=== PATIENT | male | born 1955 | race Caucasian/White ===

== ENCOUNTER 2016-09-30 07:34 | Day surgery (SDC) | payer OTHER ==
[~2016-09-30 07:34] MED LIST: ALPRAZolam 0.25 MG TAB PO PRN; ALPRAZolam 0.5 MG TAB PO PRN; ASPIRIN 325 MG TAB PO STA; ATORVASTATIN 80 MG TAB PO STA; NITROGLYCERIN SL TABS 0.4 MG TAB SUBLINGUAL PRN; SODIUM CHLORIDE 0.9% 1,000 ML in EMPTY BAG 1 BAG IV ONE
[2016-09-30 08:03] VITALS: PULSE 103; RESP 20; TEMP 97.9
[2016-09-30 08:38] LABS: Anion Gap 10 mmol/L; Blood Urea Nitrogen 7 mg/dL (9-20); Calcium 9.9 mg/dL (8.4-10.2); Carbon Dioxide 23 mmol/L (22-30); Chloride 109 mmol/L (98-107); Glucose 109 mg/dL (74-99); Non-African American GFR(MDRD) >60 (>60 ml/min/1.73 sqM); Potassium 4.1 mmol/L (3.5-5.1); Sodium 142 mmol/L (137-145)
[2016-09-30] MEDS ORDERED: IV FLUID CONTINUATION 1,000 ML IV ONE (09:40)
[2016-09-30] MEDS ORDERED: VERAPAMIL 2.5 MG/ML 2 ML AMP ONE (09:53)
[2016-09-30] MEDS ORDERED: MIDAZOLAM 2 MG/2 ML VIAL ONE (09:53)
[2016-09-30] MEDS ORDERED: LIDOCAINE 2% INJ 20 MG/ML (20 ML MDV) ONE (09:54)
[2016-09-30] MEDS ORDERED: diphenhydrAMINE 50 MG/ML 1 ML VIAL ONE (09:54)
[2016-09-30] MEDS ORDERED: MIDAZOLAM 2 MG/2 ML VIAL IV ONE (09:58)
[2016-09-30] MEDS ORDERED: diphenhydrAMINE 50 MG/ML 1 ML VIAL IVP ONE (10:01)
[2016-09-30] MEDS ORDERED: LIDOCAINE 2% INJ 20 MG/ML SQ ONE (10:03)
[2016-09-30] MEDS ORDERED: VERAPAMIL SYRINGE (5 MG/10 ML) INTRAARTER ONE (10:05)
[2016-09-30] MEDS ORDERED: HEPARIN SODIUM 1,000 UN/ML (10ML VL) ONE (10:05)
[2016-09-30] MEDS ORDERED: METOPROLOL TARTRATE 5 MG/5 ML VIAL IVP ONE ×2 (10:10)
[2016-09-30] MEDS ORDERED: HYDROmorphone 2 MG/ML 1 ML SYRINGE ONE (10:10)
[2016-09-30] MEDS ORDERED: HYDROmorphone 2 MG/ML 1 ML SYRINGE IV ONE (10:13)
[2016-09-30] MEDS ORDERED: IOHEXOL 350 MG/ML 125ML BOTTLE INJ ONE (10:19)
[2016-09-30] MEDS ORDERED: RX INFO: IV CONTRAST WAS GIVEN 1 EACH MISC MISCELLANE PRN (10:30)
[2016-09-30] MEDS ORDERED: SODIUM CHLORIDE 0.9% 1,000 ML IV SCH (10:30)
--- NOTE | 2016-09-30 14:49 | XR ---
EXAMINATION TYPE: XR chest 2V DATE OF EXAM: 09/30/2016 COMPARISON: September 30, 2016 HISTORY: Shortness of breath TECHNIQUE: Frontal and lateral views of the chest are obtained. FINDINGS: Scattered senescent parenchymal changes noted. Hyperinflation compatible with COPD. No evidence for infiltrate. No evidence for atelectasis. Heart size is stable. Mediastinal structures are stable and grossly unremarkable. No evidence for hilar prominence. Degenerative changes dorsal spine. IMPRESSION: 1. No evidence for acute pulmonary disease.
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
[2016-09-30 17:43] VITALS: BP 145/70
--- NOTE | 2016-10-01 09:50 | CC ---
DATE OF SERVICE: 09/30/16 PERFORMING PHYSICIAN: Lito Messer M.D., behavioral sciences instructor. PROCEDURE PERFORMED: 1. Selective right and left coronary angiogram. 2. Left heart catheterization. 3. Left ventriculography. INDICATIONS: This is a pleasant 61 year old gentleman who was experiencing intermittent episodes of chest discomfort and underwent myocardial perfusion imaging stress test showed distal lateral wall and apical ischemia. He was brought today to undergo a heart catheterization. His risk factors for CAD is history of smoking in the past as well as dyslipidemia. APPROACH: Right radial artery. COMPLICATIONS: None. LEVEL OF SEDATION: Moderate with a sedation length of 22 minutes. PROCEDURE DESCRIPTION: After obtaining informed consent, the patient was brought to the cardiac label stamper. The right radial artery was cannulated using micropuncture technique. The micropuncture wire passed easily. Then, I placed a 6 Italian sheath in the right radial artery. Subsequently I did selective right and left coronary angiogram using JR4 and JL3.5 catheters. Then I did left heart catheterization using 6 Italian pigtail catheter. The procedure was completed without any complication. SELECTIVE CORONARY ANGIOGRAM: 1. The right coronary artery is a large caliber vessel and it is a dominant vessel. The proximal RCA appears to have mild disease only. The mid RCA has a lesion seems to be in the range of 50%. The RCA distally has a focal tight lesion appears to be in the range of 80%. The RCA bifurcates into PDA and PLV branches, both appear to be angiographically normal. 2. The left main is a large caliber vessel with distal disease appeared to be in the range of 70%. The left main bifurcates into the left circumflex and into the left anterior descending artery. 3. The left circumflex is a large caliber vessel and it was a non-dominant vessel. The ostial and proximal left circumflex appear to be diseased in the range of 70 to 80%. The mid left circumflex also seems to be diseased in the range of 70% and that disease involving the OM branch. The left circumflex after the OM branch continues as a small caliber vessel in the AV groove. 4. The left anterior descending coronary artery: The proximal left anterior descending artery has a long tubular lesion appeared to be in the range of 70 to 80%. The proximal LAD gives rise into the first diag which is a moderate caliber vessel with severe ostial disease in it. The mid LAD appeared to have mild disease only and distally appeared to be angiographically normal. HEMODYNAMICS: The left ventricular end diastolic pressure is 13 mmHg and no gradient was identified across the aortic valve. Left ventriculography was performed in the CRUZ projection and using a power injection. The left ventricular systolic function is mildly impaired with EF between 45 to 50% with distal inferior wall and apical hypokinesia. CONCLUSION: 1. Calcified right and left coronary systems. 2. Severe triple vessel coronary artery disease. 3. Severe disease involving the distal RCA which is a large and dominant vessel. 4. Severe disease involving the distal left main with eccentric calcified lesion. 5. Severe disease involving the ostial and proximal left circumflex coronary artery. 6. Severe disease involving the proximal to mid LAD with a long tubular lesion as well. 7. Mildly impaired LV function with an ejection fraction of around 45% with distal inferior and apical hypokinesia. 8. Normal left ventricular end diastolic pressure. POSTPROCEDURE MANAGEMENT: 1. Maximize medical treatment. 2. Follow-up with the patient. KVNG
--- NOTE | 2016-10-05 12:43 | P.VSCSTY ---
Greater Saphenous Vein Mapping This is bilateral lower extremity greater saphenous vein mapping. Date of service 09/30/2016 Vein quality and ultrasound appearance normal. Vein size groin right 7.1 x 5.9 groin left 7.2 x 5.3 High thigh right 6.1 x 5.0 high thigh left 4.9 x 4.1 Mid thigh right 5.9 x 4.0 mid thigh left 3.1 x 2.9 Above-knee right 6.0 x 4.1 above- knee left 5.3 x 3.6 Below knee right 5.5 x 3.2 below-knee left 4.5 x 3.7 Mid calf right 3.9 x 2.8 mid calf left 3.5 x 2.6 Ankle right 2.8 x 1.9 ankle left 2.9 x 1.9 Impression usable bilateral greater saphenous vein.
--- NOTE | 2016-10-05 12:44 | P.ARTDOP ---
Arterial Doppler LOWER EXTREMITY ARTERIAL DOPPLER: DATE OF SERVICE: 09/30/2016 Reason for study: Pre-CABG. Doppler waveforms: Multiphasic bilaterally throughout. Pulse volume recording: []. Pressure gradients: None. Ankle-brachial indices: Greater than 1 bilaterally. Toe pressures: [] on the right, [] on the left Impression: Normal study.
== END 2016-09-30 17:30 | disposition home or self-care (01) ==
LOC: CATHCVL 07:34
PROVIDERS: ATTEND Internal Medicine Interventional Cardiology
DX: I25.110 Atherosclerotic heart disease of native coronary artery with unstable angina pectoris (principal); I25.84 Coronary atherosclerosis due to calcified coronary lesion; E78.5 Hyperlipidemia, unspecified; Z87.891 Personal history of nicotine dependence; Z01.818 Encounter for other preprocedural examination; K21.9 Gastro-esophageal reflux disease without esophagitis; B19.20 Unspecified viral hepatitis C without hepatic coma; Z79.82 Long term (current) use of aspirin; Z79.899 Other long term (current) drug therapy
CPT/HCPCS: 99152; 99153; 93458; 80048; 71020; 93970; 93922; C1894; J2001; J2250; J1170; J1200; J1644; Q9967; 93923

== ENCOUNTER → 2016-11-02 | Outpatient (CLI) | payer OTHER ==
--- NOTE | 2016-11-02 11:35 | US ---
EXAMINATION TYPE: US liver DATE OF EXAM: 11/02/2016 COMPARISON: NONE CLINICAL HISTORY: R74.8 ABN LEVELS OF OTHER SERUM ENZYMES. Elevated liver enzymes EXAM MEASUREMENTS: Liver Length: 14.2 cm Gallbladder Wall: 0.3 cm CBD: 0.3 cm Right Kidney: 11.1 x 5.2 x 5.6 cm Pancreas: portions obscured by overlying bowel content Liver: heterogeneous Gallbladder: no evidence of stones Evidence for sonographic 's sign: no CBD: appears wnl Right Kidney: no evidence of hydronephrosis or mass Visualized liver is heterogeneously hyperechoic in appearance. There is no intrahepatic ductal dilata tion seen. Evaluation for focal masses is suboptimal due to the heterogeneity. IMPRESSION: Heterogeneous hyperechoic appearance of liver is likely on basis of diffuse fatty infiltr ation, product of underlying hepatocellular disease is not excluded. Imaging guided random biopsy for tissue analysis can be performed if desired.
== END | disposition home or self-care (01) ==
LOC: RADUSWWP 11:06
DX: K76.89 Other specified diseases of liver (principal); R74.8 Abnormal levels of other serum enzymes
CPT/HCPCS: 76705

== ENCOUNTER → 2016-11-24 | Outpatient (CLI) | payer OTHER ==
[2016-11-24 11:04] LABS: CH 32.5; CHCM 35.7; HCT 43.4 % (39.0-53.0); HDW 2.94; MCH 31.6 pg (25.0-35.0); MCHC 34.6 g/dL (31.0-37.0); MCV 91.5 fL (80.0-100.0); Mean Platelet Volume 7.7; RBC 4.74 m/uL (4.30-5.90); RDW 12.4 % (11.5-15.5); WBC 5.3 k/uL (3.8-10.6)
[2016-11-24 11:15] LABS: ALT 82 U/L (21-72); AST 49 U/L (17-59); Alkaline Phosphatase 111 U/L (38-126); Anion Gap 11 mmol/L; Blood Urea Nitrogen 6 mg/dL (9-20); Calcium 9.9 mg/dL (8.4-10.2); Carbon Dioxide 24 mmol/L (22-30); Chloride 106 mmol/L (98-107); Cholesterol 116 mg/dL (<200); Glucose 110 mg/dL (74-99); HDL Cholesterol 42 mg/dL (40-60); Magnesium 1.7 mg/dL (1.6-2.3); Non-African American GFR(MDRD) >60 (>60 ml/min/1.73 sqM); Potassium 4.1 mmol/L (3.5-5.1); Sodium 141 mmol/L (137-145); Total Bilirubin 0.7 mg/dL (0.2-1.3); Total Protein 7.6 g/dL (6.3-8.2)
[2016-11-24 11:18] LABS: INR 1.1 (<1.2); Partial Thromboplastin Time 23.8 sec (22.0-30.0); Prothrombin Time 10.9 sec (9.0-12.0)
[2016-11-24 11:22] LABS: Appearance,Urine Clear (Clear); Bilirubin,Urine Negative (Negative); Glucose,Urine (UA) Negative (Negative); Ketones,Urine Negative (Negative); Leukocyte Esterase,Urine Negative (Negative); Nitrite,Urine Negative (Negative); PH, Urine 5.5 (5.0-8.0); Protein,Urine Negative (Negative); Specific Gravity,Urine 1.013 (1.001-1.035); UA Billing (MACRO vs. MICRO) CHEM
--- NOTE | 2016-11-24 14:40 | XR ---
EXAMINATION TYPE: XR chest 2V DATE OF EXAM: 11/24/2016 COMPARISON: 09/30/2016 HISTORY: 61-year-old male presurgical testing prior to CABG TECHNIQUE: PA and lateral views FINDINGS: The cardiomediastinal silhouette, aorta, and pulmonary vasculature are within normal limits. Lungs an d pleural spaces are clear. IMPRESSION: No acute cardiopulmonary process.
--- NOTE | 2016-11-30 12:28 | P.ARTDOP ---
Arterial Doppler Bilateral radial artery studies: Reason for study: Pre-CABG Date of study 11/24/2016 Findings: Doppler assessment shows no significant right to left or segmental pressure gradients. With digital plethysmography and radial artery compression there is a pressure gradient of 40 mmHg on the right, there is no significant gradient on the left Imaging shows the right to be between 2.6 x 2.4 and 3.8 x 3.1 mm in diameter. The left is between 3.2 x 2.4 and 3.0 x 2.4 mm in diameter Left radial artery is usable by physiologic and anatomic criteria.
== END | disposition home or self-care (01) ==
LOC: LABPAT 07:39
PROVIDERS: ATTEND Surgery
DX: Z01.818 Encounter for other preprocedural examination (principal)
CPT/HCPCS: 36415; 71020; 80053; 80061; 80074; 81003; 83036; 83735; 83880; 84443; 84484; 85027; 85610; 85730; 87070; 87086; 93923; 93930; 94150

== ENCOUNTER → 2020-10-14 | Outpatient (CLI) | payer OTHER ==
[2020-10-14 14:55] LABS: HCT 43.4 % (39.0-53.0); HGB 15.5 gm/dL (13.0-17.5); MCH 33.2 pg (25.0-35.0); MCHC 35.8 g/dL (31.0-37.0); MCV 92.8 fL (80.0-100.0); Mean Platelet Volume 8.6; Platelet Count 168 k/uL (150-450); RBC 4.68 m/uL (4.30-5.90); RDW 12.2 % (11.5-15.5); WBC 7.9 k/uL (3.8-10.6)
[2020-10-14 15:06] LABS: African American GFR (CKD) >90 (>60 ml/min/1.73 sqM); Anion Gap 9 mmol/L; Blood Urea Nitrogen 8 mg/dL (9-20); Carbon Dioxide 27 mmol/L (22-30); Chloride 102 mmol/L (98-107); Non-African American GFR(CKD) >90 (>60 ml/min/1.73 sqM); Potassium 4.1 mmol/L (3.5-5.1); Sodium 138 mmol/L (137-145)
== END | disposition home or self-care (01) ==
LOC: LABPAT 13:39
PROVIDERS: ATTEND Internal Medicine Interventional Cardiology
DX: Z01.812 Encounter for preprocedural laboratory examination (principal); I25.10 Atherosclerotic heart disease of native coronary artery without angina pectoris
CPT/HCPCS: 36415; 80051; 82565; 84520; 85027

== ENCOUNTER 2020-11-03 06:31 | Day surgery (SDC) | payer OTHER ==
[2020-10-30 13:12] VITALS: BMI 28.9
[~2020-11-03 06:31] MED LIST changes: +HEPARIN SODIUM,PORCINE 10,000 UNIT in SODIUM CHLORIDE 0.9% 1,000 ML IRRIGATION PRN; +HEPARIN SODIUM,PORCINE 2,500 UNIT in SODIUM CHLORIDE 0.9% 250 ML IRRIGATION PRN
[2020-11-03] MEDS ORDERED: SODIUM CHLORIDE 0.9% 1,000 ML IV ONE (07:12)
[2020-11-03] MEDS ORDERED: LIDOCAINE 1% INJ 10MG/ML (20 ML MDV) ONE (07:14)
[2020-11-03] MEDS ORDERED: VERAPAMIL 2.5 MG/ML 2 ML AMP ONE (07:14)
[2020-11-03] MEDS ORDERED: HEPARIN SODIUM 1,000 UN/ML (10ML VL) ONE (07:14)
[2020-11-03 07:27] VITALS: TEMP 98.1
[2020-11-03] MEDS ORDERED: MIDAZOLAM 2 MG/2 ML VIAL IV ONE (07:35)
[2020-11-03] MEDS ORDERED: LIDOCAINE 1% INJ 10MG/ML (20 ML MDV) SQ ONE (07:48)
[2020-11-03] MEDS ORDERED: IOPAMIDOL-370 125ML BTL INJ ONE (08:14)
[2020-11-03] MEDS ORDERED: RX INFO: IV CONTRAST WAS GIVEN 1 EACH MISC MISCELLANE PRN (08:16)
[2020-11-03] MEDS ORDERED: SODIUM CHLORIDE 0.9% 1,000 ML IV SCH (08:30)
[2020-11-03] MEDS ORDERED: HYDROmorphone 1 MG/ML 1 ML SYRINGE IVP STA (09:47)
--- NOTE | 2020-11-03 09:50 | CC ---
CARDIAC CATHETERIZATION REPORT DATE OF SERVICE: 11/03/2020 PERFORMING PHYSICIAN: Lito Messer MD. PROCEDURE PERFORMED: 1. Selective left and right coronary angiogram. 2. GIBBS to LAD angiogram. 3. SVG to diagonal angiogram. 4. SVG to left circumflex angiogram. 5. SVG to RCA angiogram. 6. Left heart catheterization. 7. Right common femoral artery angiogram. INDICATION: This is a pleasant 57-year-old gentleman with coronary artery disease and prior coronary artery bypass grafting who was not feeling well where he was experiencing symptoms of feeling tired and fatigued and has no energy and sometimes chest discomfort. He underwent myocardial perfusion imaging stress test and that came in to be abnormal showing anterior ischemia. Because of that, a heart catheterization was advised. APPROACH: Right common femoral artery. COMPLICATION: None. LEVEL OF SEDATION: Moderate with sedation length of 24 minutes. PROCEDURE DESCRIPTION: After obtaining informed consent, the patient was brought to the cardiac general labor forklift operator. The right common femoral artery was cannulated using micropuncture technique and a micropuncture wire passed easily. Then I placed a 6-Malay sheath in the right common femoral artery. I did selective right and left coronary angiogram using JL4 and JR4 catheters. GIBBS to LAD angiogram, SVG to diagonal and SVG to left circumflex and SVG to RCA angiogram was performed using the JR4 catheter. Left heart catheterization was performed using the JR4 catheter. After that, the procedure was completed without any complication. SELECTIVE CORONARY ANGIOGRAM: 1. The LEFT MAIN is a large caliber vessel with distal disease appeared to be in the range of 50% and the left main is calcified. It bifurcates into left circumflex and left anterior descending artery. 2. The LEFT CIRCUMFLEX is a medium caliber vessel. The ostial of the left circumflex has a lesion appeared to be in the range of 50% right from the takeoff from the left main. 3. The LAD: The LAD is occluded in the midportion. It gives rise into a diagonal branch which has a lesion tubular appeared to be in the range of 70%. The lesion is long as well. 4. The RCA is a large caliber vessel. The RCA has mild diffuse disease only. CORONARY BYPASS ANGIOGRAM: 1. 2. The GIBBS to LAD is patent. 3. The SVG to left circumflex is patent. 4. The SVG to diagonal is occluded. 5. The SVG to RCA is patent. CONCLUSION: 1. Severe triple-vessel coronary artery disease. 2. Patent GIBBS to LAD. 3. Occluded SVG to diagonal. The diagonal is a medium caliber vessel with a tubular lesion appeared to be in the range of 70%. 4. Patent SVG to the left circumflex. 5. Patent SVG to RCA. POSTPROCEDURE MANAGEMENT: 1. I advised maximize medical treatment at this point. 2. The patient continues to be symptomatic in spite of maximized medical treatment, I will consider proceeding with PCI of the unprotected diag as well as distal left main coronary artery. MMODL / IJN: [id number] /
[2020-11-03 18:34] VITALS: BP 104/68; PULSE 74; RESP 14
== END 2020-11-03 15:10 | disposition home or self-care (01) ==
LOC: CATHCVL 06:31
PROVIDERS: ATTEND Internal Medicine Interventional Cardiology
DX: I25.110 Atherosclerotic heart disease of native coronary artery with unstable angina pectoris (principal); I25.710 Atherosclerosis of autologous vein coronary artery bypass graft(s) with unstable angina pectoris; I25.84 Coronary atherosclerosis due to calcified coronary lesion; R94.39 Abnormal result of other cardiovascular function study; Z20.822 Contact with and (suspected) exposure to COVID-19; I10 Essential (primary) hypertension; E78.00 Pure hypercholesterolemia, unspecified; E78.5 Hyperlipidemia, unspecified; J90 Pleural effusion, not elsewhere classified; Z72.0 Tobacco use; Z79.82 Long term (current) use of aspirin; Z79.899 Other long term (current) drug therapy
CPT/HCPCS: 93459; 87635; C1894 ×2; C1769 ×2; J2250; J2001; J1170; Q9967

== ENCOUNTER → 2022-08-01 | Outpatient (CLI) | payer OTHER ==
[2022-08-01 13:23] VITALS: BP 127/83; PULSE 74; RESP 18; TEMP 98.4
--- NOTE | 2022-08-01 14:22 | P.PAINPG ---
PQRS Measure Charge Sheet Comment: HISTORY OF PRESENT ILLNESS: 67 yr old male as a referral from the [facility] presents today w severe and chronic neck pain secondary to DDD, spondylosis facet arthropathy without myelopathy for evaluation. Pt states pain level is provoked at 9 /10 in intensity, constant, localized in the mid cervical spine, achy in character without shooting pain. Pain is provoked by any activity. Pain is alleviated by acupuncture treatments, topical lidocaine, heat, PT x 8 wks in 2021, repositioning and rest. Pt has difficulty w recall of information. PMH: OA, CAD, Angina, GERD, Hyperlipidemia, Hep C PSH: Heart Catheterization, BL Inguinal Hernia Repair, Cervical Surgery, LUE ORIF SH: Former tobacco user, No ETOH abuse, No illicit drug use FH: Mo- Uterine CA. Fa- BPH, CVA. Bro- Esophageal CA, CHF, CAD. Sis- No Reported History. All: See list Meds: See list REVIEW OF ORGAN SYSTEMS: CONSTITUTIONAL: No fevers or chills. No recent weight loss. NEUROLOGICAL: + numbness and tingling along the distal extremities. No seizure disorders or headaches. MUSCULOSKELETAL: + pain PSYCHIATRIC: Denies current depression or suicidal thoughts. Physical Examinations : Constitutional : Cooperative , not in acute distress . Neurologic : Cranial nerve II to XII intact. No focal neurological deficits. Psychiatric : alert & oriented x 3. Matching mood & appropriate affect. Judgment & insight intact. Musculoskeletal : Cervical Spine Motor strength in the deltoid and biceps: Normal right side. Normal Left side Motor strength biceps and the wrist extensors: Normal right side . Normal left side Motor strength in the triceps muscle: Normal right side. Normal left side Deep tendon reflexes: Normal at the biceps. Normal at Brachioradialis. Normal at triceps Vertebral body tenderness to deep palpation over C6 Cervical facet loading test: positive bilaterally Spurling test: positive bilaterally Neck distraction test: positive bilaterally Mandeep sign: positive bilaterally Lumbar spine Motor strength lower extremities ,thigh and legs 5/5 Right side , 5/5 Left side Deep tendon reflexes : Normal Knee Jerk. Normal Ankle Jerk Vertebral body tenderness over Garcia Test positive Lumbar facet Loading Test: positive Right / positive Left Range of motion of the lumbar spine Flexion 30 degrees, extension 10 degrees Straight Leg Raise test: Left/ Right positive at degree Ryan test: positive right / positive left. Severe tenderness over the Sacroiliac joint on the Right / Left sides Gaenslen test: positive bilaterally Seated flexion test: positive bilaterally. Sacral spine : Severe tenderness over the Sacroiliac joint: right side / left side Range of motion: Flexion of the lumbar spine <60 degrees Range of motion: Extension of the lumbar spine <20 degrees Gaenslen's Test positive Chavez's Test positive Ryan test: positive right side / left side Thigh Thrust Test Sacral Thrust Test Imaging: Awaiting report from [place] [facility] Assessment/ Plan : Cervical DDD Recommendation of follow up in 2 wks. Script for cervical x ray Dx: M 50.30. All questions answered. I have spent greater than 30 minutes on patient care today. Dr Rock was available by phone for the evaluation of this patient. The time was used to review the medical records including relevant urine studies and Prescription history (MAPs), review of the available imaging, evaluation and examination of the patient, coordination of care with the medical staff and if applicable referring physicians, as well as creation of the medical record PQRS Narrative: Smoking Status Former smoker Home Medications: Ambulatory Orders Folic Acid 1 mg PO DAILY@1200 tab 12/09/16 Furosemide [Lasix] 20 mg PO DAILY #7 tab 12/09/16 Metoprolol Tartrate [Lopressor] 75 mg PO BID tab 12/09/16 Pantoprazole [Protonix] 40 mg PO [id number] tablet. 12/09/16 Aspirin [Adult Low Dose Aspirin EC] 81 mg PO DAILY 10/30/20 Atorvastatin [Lipitor] 40 mg PO HS 10/30/20 Vitamin E 400 unit PO DAILY 10/30/20 Controlled Substance Measures - Controlled Substance Measures Is patient prescribed a controlled substance at discharge?: No
== END ==
LOC: PNWHC3 11:03
PROVIDERS: ATTEND Specialist
DX: M50.322 Other cervical disc degeneration at C5-C6 level (principal); M47.812 Spondylosis without myelopathy or radiculopathy, cervical region; G89.29 Other chronic pain; M19.90 Unspecified osteoarthritis, unspecified site; I25.10 Atherosclerotic heart disease of native coronary artery without angina pectoris; K21.9 Gastro-esophageal reflux disease without esophagitis; E78.5 Hyperlipidemia, unspecified; Z87.891 Personal history of nicotine dependence; Z79.82 Long term (current) use of aspirin
CPT/HCPCS: 99211

== ENCOUNTER → 2022-08-22 | Outpatient (CLI) | payer OTHER ==
[2022-08-22 11:30] VITALS: BP 134/84; PULSE 71; RESP 16; TEMP 97.9
--- NOTE | 2022-08-22 14:40 | P.PAINPG ---
PQRS Measure Charge Sheet Comment: 67 yr old male presents today w severe and chronic neck pain secondary to C4-C6 post laminectomy syndrome for evaluation. Pt states pain level is provoked at 8 /10 in intensity, constant, localized in the upper cervical spine, dull, achy in character without shooting pain. Pain is provoked by any activity. Pain is alleviated by acupuncture treatments, topical lidocaine, at home massage device use, heat, PT x 8 wks in 2021, repositioning and rest. Oswestry axial pain score of 23. Intervention procedures include DENIES Medications include Lidoderm REVIEW OF ORGAN SYSTEMS: CONSTITUTIONAL: No fevers or chills. No recent weight loss. NEUROLOGICAL: + numbness and tingling along the distal extremities. No seizure disorders or headaches. MUSCULOSKELETAL: + pain PSYCHIATRIC: Denies current depression or suicidal tho ughts. Physical Examinations : Constitutional : Cooperative , not in acute distress . Neurologic : Cranial nerve II to XII intact. No focal neurological deficits. Psychiatric : alert & oriented x 3. Matching mood & appropriate affect. Judgment & insight intact. Musculoskeletal : Cervical Spine Motor strength in the deltoid and biceps: Normal right side. Normal Left side Motor strength biceps and the wrist extensors: Normal right side . Normal left side Motor strength in the triceps muscle: Normal right side. Normal left side Deep tendon reflexes: Normal at the biceps. Normal at Brachioradialis. Normal at triceps Vertebral body tenderness to deep palpation Cervical facet loading test: positive bilaterally over C2-C3, C3-C4 Spurling test: positive bilaterally Neck distraction test: positive bilaterally Mandeep sign: positive bilaterally Lumbar spine Motor strength lower extremities ,thigh and legs 5/5 Right side , 5/5 Left side Deep tendon reflexes : Normal Knee Jerk. Normal Ankle Jerk Vertebral body tenderness over Garcia Test positive Lumbar facet Loading Test: positive Rig ht / positive Left Range of motion of the lumbar spine Flexion 30 degrees, extension 10 degrees Straight Leg Raise test: Left/ Right positive at degree Ryan test: positive right / positive left. Severe tenderness over the Sacroiliac joint on the Right / Left sides Gaenslen test: positive bilaterally Seated flexion test: positive bilaterally. Sacral spine : Severe tenderness over the Sacroiliac joint: right side / left side Range of motion: Flexion of the lumbar spine <60 degrees Range of motion: Extension of the lumbar spine <20 degrees Gaenslen's Test positive Chavez's Test positive Ryan test: positive right side / left side Thigh Thrust Test Sacral Thrust Test Imaging: MRI noncontrast of the cervical spine from 04/06/21 reviewed Assessment/ Plan : Cervical DDD s/p post laminectomy syndrome Recommendation of BL facet block of the medial branches C2-C3, C3-C4 #1. May need a series of injections for optimal pain relief. Risks, benefits of procedure discussed and patient verbalized understanding. Protocol for discontinuation/continuation of medications surrounding procedure discussed. All questions answered. I have spent greater than 30 minutes on patient care today. Dr Rock was available by phone for the evaluation of this patient. The time was used to review the medical records including relevant urine studies and Prescription history (MAPs), review of the available imaging, evaluation and examination of the patient, coordination of care with the medical staff and if applicable referring physicians, as well as creation of the medical record PQRS Narrative: Smoking Status Former smoker Home Medications: Ambulatory Orders Folic Acid 1 mg PO DAILY@1200 tab 12/09/16 Furosemide [Lasix] 20 mg PO DAILY #7 tab 12/09/16 Metoprolol Tartrate [Lopressor] 75 mg PO BID tab 12/09/16 Pantoprazole [Protonix] 40 mg PO AC-BRKFST tablet. 12/09/16 Aspirin [Adult Low Dose Aspirin EC] 81 mg PO DAILY 10/30/20 Atorvastatin [Lipitor] 40 mg PO HS 10/30/20 Vitamin E 400 unit PO DAILY 10/30/20 Controlled Substance Measures - Controlled Substance Measures Is patient prescribed a controlled substance at discharge?: No
== END ==
LOC: PNWHC3 11:00
PROVIDERS: ATTEND Specialist
DX: M50.31 Other cervical disc degeneration, high cervical region (principal); M96.1 Postlaminectomy syndrome, not elsewhere classified; Z87.891 Personal history of nicotine dependence
CPT/HCPCS: 99211

== ENCOUNTER 2022-09-23 10:08 | Day surgery (SDC) | payer OTHER ==
[~2022-09-23 10:08] MED LIST changes: -ALPRAZolam 0.25 MG TAB PO PRN; -ALPRAZolam 0.5 MG TAB PO PRN; -ASPIRIN 325 MG TAB PO STA; -ATORVASTATIN 80 MG TAB PO STA; -HEPARIN SODIUM,PORCINE 10,000 UNIT in SODIUM CHLORIDE 0.9% 1,000 ML IRRIGATION PRN; -HEPARIN SODIUM,PORCINE 2,500 UNIT in SODIUM CHLORIDE 0.9% 250 ML IRRIGATION PRN; +LACTATED RINGERS 1,000 ML IV SCH; -NITROGLYCERIN SL TABS 0.4 MG TAB SUBLINGUAL PRN; -SODIUM CHLORIDE 0.9% 1,000 ML in EMPTY BAG 1 BAG IV ONE
[2022-09-23] MEDS ORDERED: LACTATED RINGERS 1,000 ML IV SCH (10:26)
[2022-09-23 10:34] VITALS: RESP 16; TEMP 97
[2022-09-23] MEDS ORDERED: MIDAZOLAM 2 MG/2 ML VIAL ONE (10:43)
[2022-09-23] MEDS ORDERED: fentaNYL (PF) 50 MCG/ML 2 ML AMP ONE (10:43)
[2022-09-23] MEDS ORDERED: DEXAMETHASONE SOD PHOSPHATE 10 MG/ML 1 ML VIAL ONE (10:46)
[2022-09-23] MEDS ORDERED: ROPIVACAINE 5 MG/ML 20 ML AMPULE ONE (10:46)
--- NOTE | 2022-09-23 11:08 | P.PCN ---
Date of Procedure: 09/23/22 Description of Procedure: PREOPERATIVE DIAGNOSIS: Cervical spondylosis without myelopathy, and occipital neuralgia POSTOPERATIVE DIAGNOSIS: Cervical spondylosis without myelopathy, and occipital neuralgia PROCEDURE : Bilateral cervical C3 -C3, and C3-C4 medial branch block under fluoroscopic guidance. SURGEON: Kusum Tapia TEACHER: None ANESTHESIA: Local anesthesia , and IV sedation : Versed 2 mg, and fentanyl 100 g EBL: None Image: Fluoroscopic image saved to electronic medical records PROCEDURE INDICATION: The patient with neck pain returns here for diagnostic medial branch block, failed with the conservative therapy. PROCEDURE DESCRIPTION: The patient was seen and identified in the preoperative area. Risks, benefits, complications, and alternatives were discussed with the patient; the patient agreed to proceed with the procedure and signed the consent. Vital signs were stable. Standard ASA monitoring applied. Patient was taken to the OR and time out was completed. The patient was placed in the prone position on the procedure table and cervical area was prepped with ChloraPrep 2 and draped in the usual sterile fashion. Critical pause was taken. Vital signs were closely monitored during the procedure. Using anteroposterior fluoroscopic with 15 cephalad tilt Waists of C2, C3, and C4 identified and marked with the sterile marker. Skin and subcutaneous tissue injected with a total of 3 mL of lidocaine 1% using a 27-gauge 1-1/2 inch needle. Using a 22-gauge 3-1/2 inch spinal needles 3. Each spinal needle entered to the corresponding waists. Using cross-table lateral fluoroscopy, the centroid of the trapezoid of C2, C3, and C4, . [place] were guided by fluoroscopy to the centroid of the trapezoid of C2, C3, and C4. After negative aspiration for blood and CSF, 0.5 mL of block solution injected at each level. The block solution containing 2 ml of 0.5% ropivacaine preservative free and 10 mg dexamethasone (3ml total mixture) . [place] were removed intact. Entire procedure repeated on the left side . [place] were withdrawn intact. Skin was cleansed and bandages were applied. COMPLICATIONS: None. COMMENTS: DISPOSITION/PLAN: The patient was placed in a supine position and transferred to the recovery area in a stable condition for observation and was discharged from the recovery room after meeting discharge criteria. Home discharge instructions given to the patient by the staff. The patient was reexamined prior to discharge. The patient will schedule a repeat procedure in 2-4 weeks.
[2022-09-23] MEDS ORDERED: IV FLUID CONTINUATION 1,000 ML IV ONE (11:11)
--- NOTE | 2022-09-23 11:20 | FL ---
Fluoroscopy INDICATION: Pain FINDINGS: Fluoroscopy time: 33.6 seconds. Total dose area product (DAP) in uGy*m?, mGy*cm? (or similar): 0.86842 Images obtained: 0. IMPRESSIONS: 1. Documentation of fluoroscopy.
[2022-09-23 11:29] VITALS: BP 112/74; PULSE 76
== END 2022-09-23 11:47 | disposition home or self-care (01) ==
LOC: ORPAIN 10:08
DX: M47.812 Spondylosis without myelopathy or radiculopathy, cervical region (principal); I10 Essential (primary) hypertension; K21.9 Gastro-esophageal reflux disease without esophagitis; E78.5 Hyperlipidemia, unspecified; I25.10 Atherosclerotic heart disease of native coronary artery without angina pectoris; Z98.890 Other specified postprocedural states; Z95.1 Presence of aortocoronary bypass graft; Z79.891 Long term (current) use of opiate analgesic
CPT/HCPCS: 64490; 64491; J2250; J1100; J3010; J2795

== ENCOUNTER 2022-11-22 10:50 | Day surgery (SDC) | payer OTHER ==
[2022-11-22 11:18] VITALS: TEMP 98.2
[2022-11-22] MEDS ORDERED: ROPIVACAINE 5MG/ML 20ML VIAL ONE (11:51)
[2022-11-22] MEDS ORDERED: methylPREDNISolone ACETATE 40 MG/ML 1 ML VIAL ONE (11:51)
[2022-11-22] MEDS ORDERED: MIDAZOLAM 2 MG/2 ML VIAL ONE (11:51)
[2022-11-22] MEDS ORDERED: fentaNYL (PF) 50 MCG/ML 2 ML AMP ONE (11:51)
--- NOTE | 2022-11-22 12:14 | P.PCN ---
Date of Procedure: 11/22/22 Procedure(s) Performed: PREOPERATIVE DIAGNOSIS: 1-Cervical Spondylosis with Facet Arthropathy.without myelopathy. 2-cervical degenerative disc disease POSTOPERATIVE DIAGNOSIS:1-cervical spondylosis with facet arthropathy without myelopathy. 2-cervical degenerative disc disease PROCEDURES: Diagnostic bilateral C2 ,C3, C4 medial branch blocks, with fluoroscopic guidance (fluoroscopy images available in radiology department ) ( to target the facet joint at bilateral C2-3 C3-4 ) #2nd ANESTHESIA:moderate sedation with Versed 2 mg , and fentanyl 100 micrograms , (sedation start time 1151, end time 1209) EBL: Minimal PROCEDURE INDICATION: The patient with neck pain secondary to cervical arthropathy unresponsive to more conservative treatments. PROCEDURE DESCRIPTION / TECHNIQUE: The patient was seen and identified in the preoperative area. Risks, benefits, complications, and alternatives were discussed with the patient, the patient agreed to proceed with the procedure and signed the consent. IV was started. Vital signs remained stable throughout the procedure. Patient was taken to the OR and time out was completed. The patient was placed in the prone position on the procedure table. A pillow was placed under the patients chest to increase the cervical interlaminar space. The cervical area was prepped and draped in the usual sterile fashion. Critical pause was taken. Vital signs were closely monitored during the procedure. Conscious sedation was used during the procedure to decrease patients anxiety. Using cross-table lateral fluoroscopy, the centroid of the trapezoid of right C2 ,C3, C4 was identified, marked, and localized with 1% lidocaine 1 ml at each level for skin and Sub Q infiltrations . Subsequently, a 22 G 3 spinal needle was advanced guided by fluoroscopy to the centroid of the trapezoid of Right C2 , C3, C4 , . [place] tip position was confirmed at the centroid of the trapezoids of Right C2 ,C3 , C4 ,with anteroposterior fluoroscopy. Subsequently, 2 ml of preservative-free Ropivacaine 0.5% mixed with Depo- Medrol 20 mg and half ml of the mixture was injected after negative aspiration for blood and CSF. [place] was then removed intact the same procedure was repeated at the leftC2 , C3 , C4 , levels. COMPLICATIONS: No acute complications. DISPOSITION / PLANS: The patient was placed in a supine position and transferred to the recovery area in a stable condition for observation and was discharged from the recovery room after meeting discharge criteria. Home discharge instructions given to the patient by the staff. The patient was reexamined prior to discharge. The patient will schedule a follow up in the clinic in 2-4 weeks.
[2022-11-22] MEDS ORDERED: IV FLUID CONTINUATION 1,000 ML IV ONE (12:15)
--- NOTE | 2022-11-22 12:34 | FL ---
Intraoperative/procedural fluoroscopic services were provided for bilateral cervical facet block. Tot al fluoroscopy time is 20.5 seconds with a total of 5 submitted images to PACS. Total DAP 0.40302 mGy m2. Please see the operative note for further details.
[2022-11-22 12:35] VITALS: RESP 14
[2022-11-22 12:55] VITALS: BP 119/74; PULSE 75
== END 2022-11-22 12:53 | disposition home or self-care (01) ==
LOC: ORPAIN 10:50
PROVIDERS: ATTEND Specialist
DX: M47.812 Spondylosis without myelopathy or radiculopathy, cervical region (principal); M50.31 Other cervical disc degeneration, high cervical region
CPT/HCPCS: 64490; 64491 ×2; 99152; J2250; J1030; J3010; J2795

== ENCOUNTER → 2022-12-08 | Outpatient (CLI) | payer OTHER ==
[2022-12-08 12:16] VITALS: BP 138/88; PULSE 71; RESP 15; TEMP 98.6
--- NOTE | 2022-12-08 12:34 | P.PAINPG ---
PQRS Measure Charge Sheet Comment: A 67 yr old male presents today w severe and chronic neck pain secondary to C4- C6 post laminectomy syndrome for evaluation s/p BL MBB C2-C4 #2. Pt states she experienced 90% pain relief x 1.5 days s/p procedure. Pt states pain level is provoked at 6 /10 in intensity, constant, localized in the upper cervical spine, dull, achy in character without shooting pain. Pain is provoked by any activity. Pain is alleviated by acupuncture treatments, topical lidocaine, at home massage device use, heat, PT x 8 wks in 2021, physician guided neck stretches daily since 2021, repositioning and rest. Oswestry axial pain score of 24. Intervention procedures include BL MBB C2-C4 x2 Medications include Lidoderm REVIEW OF ORGAN SYSTEMS: CONSTITUTIONAL: No fevers or chills. No recent weight loss. NEUROLOGICAL: + numbness and tingling along the distal extremities. No seizure disorders or headaches. MUSCULOSKELETAL: + pain PSYCHIATRIC: Denies current depression or suicidal thoughts. Physical Examinations : Constitutional : Cooperative , not in acute distress . Neurologic : Cranial nerve II to XII intact. No focal neurological deficits. Psychiatric : alert & oriented x 3. Matching mood & appropriate affect. Judgment & insight intact. Musculoskeletal : Cervical Spine Motor strength in the deltoid and biceps: Normal right side. Normal Left side Motor strength biceps and the wrist extensors: Normal right side . Normal left side Motor strength in the triceps muscle: Normal right side. Normal left side Deep tendon reflexes: Normal at the biceps. Normal at Brachioradialis. Normal at triceps Vertebral body tenderness to deep palpation Cervical facet loading test: positive bilaterally over C2-C3, C3-C4 Spurling test: positive bilaterally Neck distraction test: positive bilaterally Mandeep sign: positive bilaterally Lumbar spine Motor strength lower extremities ,thigh and legs 5/5 Right side , 5/5 Left side Deep tendon reflexes : Normal Knee Jerk. Normal Ankle Jerk Vertebral body tenderness over Garcia Test positive Lumbar facet Loading Test: positive Right / positive Left Range of motion of the lumbar spine Flexion 30 degrees, extension 10 degrees Straight Leg Raise test: Left/ Right positive at degree Ryan test: positive right / positive left. Severe tenderness over the Sacroiliac joint on the Right / Left sides Gaenslen test: positive bilaterally Seated flexion test: positive bilaterally. Sacral spine : Severe tenderness over the Sacroiliac joint: right side / left side Range of motion: Flexion of the lumbar spine <60 degrees Range of motion: Extension of the lumbar spine <20 degrees Gaenslen's Test positive Chavez's Test positive Ryan test: positive right side / left side Thigh Thrust Test Sacral Thrust Test Imaging: MRI noncontrast of the cervical spine from 04/06/21 reviewed Assessment/ Plan : Cervical DDD s/p post laminectomy syndrome Recommendation of BL RFA C2-C3, C3-C4. Pt exhibited optimal pain relief w prior facet blocks of the medial branches. Risks, benefits of procedure discussed and patient verbalized understanding. Protocol for discontinuation/continuation of medications surrounding procedure discussed. Ibu 800mg #90 w 1 RF. All questions answered. I have spent greater than 30 minutes on patient care today. Dr Rock was a vailable by phone for the evaluation of this patient. The time was used to review the medical records including relevant urine studies and Prescription history (MAPs), review of the available imaging, evaluation and examination of the patient, coordination of care with the medical staff and if applicable referring physicians, as well as creation of the medical record PQRS Narrative: Smoking Status Former smoker Hx Alcohol Use (MH) Yes Home Medications: Ambulatory Orders Folic Acid 1 mg PO DAILY@1200 tab 12/09/16 Furosemide [Lasix] 20 mg PO DAILY #7 tab 12/09/16 Aspirin [Adult Low Dose Aspirin EC] 81 mg PO DAILY 10/30/20 Atorvastatin [Lipitor] 40 mg PO HS 10/30/20 Vitamin E 400 unit PO DAILY 10/30/20 Metoprolol Tartrate [Lopressor] 25 mg PO HS 09/15/22 Metoprolol Tartrate [Lopressor] 50 mg PO DAILY 09/15/22 Pantoprazole [Protonix] 40 mg PO AC-BRKFST PRN 09/15/22 Multivitamins, Thera [Multivitamin (formulary)] 1 tab PO DAILY 11/16/22 Aspirin 81 mg PO DAILY 11/22/22 Ibuprofen 800 mg PO Q8H 30 Days #90 tab 12/08/22 Controlled Substance Measures - Controlled Substance Measures Is patient prescribed a controlled substance at discharge?: No
== END ==
LOC: PNWHC3 11:06
PROVIDERS: ATTEND Specialist
DX: M50.320 Other cervical disc degeneration, mid-cervical region, unspecified level (principal); M96.1 Postlaminectomy syndrome, not elsewhere classified; Z87.891 Personal history of nicotine dependence; Z79.82 Long term (current) use of aspirin
CPT/HCPCS: 99211

== ENCOUNTER 2023-01-13 10:55 | Day surgery (SDC) | payer OTHER ==
[2023-01-13] MEDS ORDERED: LACTATED RINGERS 1,000 ML IV ONE (11:44)
[2023-01-13] MEDS ORDERED: fentaNYL (PF) 50 MCG/ML 2 ML AMP ONE (11:48)
[2023-01-13] MEDS ORDERED: MIDAZOLAM 2 MG/2 ML VIAL ONE (11:48)
[2023-01-13 11:51] VITALS: TEMP 97.9
[2023-01-13] MEDS ORDERED: ROPIVACAINE 5MG/ML 20ML VIAL ONE (11:51)
[2023-01-13] MEDS ORDERED: methylPREDNISolone ACETATE 40 MG/ML 1 ML VIAL ONE (11:51)
--- NOTE | 2023-01-13 12:38 | P.PCN ---
Date of Procedure: 01/13/23 Procedure(s) Performed: PREOPERATIVE DIAGNOSIS: Cervical spondylosis with Facet Arthropathy without myelopathy. POSTOPERATIVE DIAGNOSIS: Cervical spondylosis with Facet Arthropathy without myelopathy. PROCEDURES: Radiofrequency thermocoagulationRight C2 , C3, C4 medial branch with Fluroscopy [place](fluoroscopy was available in Radiology department ) (to denervate the facet joint at Right C2-3, C3- 4 ) ANESTHESIA: Monitored anesthesia care as per anesthesia department . EBL: Minimal PROCEDURE INDICATION: The patient with neck pain secondary to cervical arthropathy who had more than 50% relief of her pain with previous diagnostic cervical medial branch block. PROCEDURE DESCRIPTION / TECHNIQUE: The patient was seen and identified in the preoperative area. Risks, benefits, complications, and alternatives were discussed with the patient, the patient agreed to proceed with the procedure and signed the consent. IV was started. Vital signs remained stable throughout the procedure. Patient was taken to the OR and time out was completed. The patient was placed in the Lateral position ( right side up ) on the procedure table. The cervical area was prepped and draped in the usual sterile fashion. Critical pause was taken. Vital signs were closely monitored during the procedure. Conscious sedation was used during the procedure to decrease patients anxiety. Using cross-table lateral fluoroscopy, the centroid of the trapezoid ofRight C2 ,C3, C4 were identified, marked, and localized with 1% lidocaine. Subsequently, a 20 -hc radiofrequency cannula with a 10-mm active tip was advanced guided by fluoroscopy to the centroid of the trapezoid of Right C2 ,C3, C4. Needle tip position was confirmed at the centroid of the trapezoids of Right C2 , C3, C4 with anteroposterior fluoroscopy. Each site then underwent sensory testing at 50 Hz and 0 to 1 volt and motor testing at 2 Hz and 0 to 3 volt with local stimulation, but no radicular symptoms down the arm. Thereafter each sites underwent radiofrequency thermocoagulation at 80 degrees celsius for 90 seconds after injecting 0.5 ml of PF Ropivacaine 0.5 %. After thermocoagulation, 1 ml of the block solution containing Depo-Medrol 40 mg and 3 mL of preservative-free normal saline was injected at the right C2 , C3, C4, levels after negative aspiration of CSF and blood and with no paresthesias. Cannulas were retracted while injecting lidocaine 1% until the needle is out. Skin was cleansed and bandages were applied. COMPLICATIONS: No acute complications. DISPOSITION / PLANS: The patient was placed in a supine position and transferred to the recovery area in a stable condition for observation and was discharged from the recovery room after meeting discharge criteria. Home discharge instructions given to the patient by the staff. The patient was reexamined prior to discharge. The patient will schedule a follow up in the clinic in 2-4 weeks.
[2023-01-13] MEDS ORDERED: IV FLUID CONTINUATION 400 ML IV ONE (12:40)
[2023-01-13 13:04] VITALS: BP 130/82; PULSE 79; RESP 16
--- NOTE | 2023-01-13 15:07 | FL ---
EXAMINATION TYPE: FL guided pain mgmt statistic DATE OF EXAM: 01/13/2023 FLUOROSCOPY RF cervical with Al Gunner. 1 min 26 sec fluoro time. 0.80712 mGycm2 DAP. 2 images saved.
== END 2023-01-13 13:18 | disposition home or self-care (01) ==
LOC: ORPAIN 10:55
PROVIDERS: ATTEND Specialist
DX: M47.812 Spondylosis without myelopathy or radiculopathy, cervical region (principal); I10 Essential (primary) hypertension; E78.5 Hyperlipidemia, unspecified; I25.10 Atherosclerotic heart disease of native coronary artery without angina pectoris; K70.10 Alcoholic hepatitis without ascites; K21.9 Gastro-esophageal reflux disease without esophagitis; Z79.82 Long term (current) use of aspirin; Z79.899 Other long term (current) drug therapy
CPT/HCPCS: 99152; 99153; 64633; 64634; J2250; J1030; J3010; J2795